=== PATIENT | male | born 1955 | race American Indian/Alaskan Native ===

== ENCOUNTER 2021-10-19 00:27 | Emergency (ER) | payer MEDICARE ==
[2021-10-19 00:45] VITALS: BP 135/85
--- NOTE | 2021-10-19 01:07 | Emergency Department Report ---
ED General Adult HPI - General Chief complaint: Extremity Injury, Lower Stated complaint: BILATERAL LEG PAIN Time Seen by Provider: 10/19/21 00:55 Source: patient Mode of arrival: Ambulatory Limitations: No Limitations - History of Present Illness Initial comments: Patient presents secondary to feet swelling and pain. Patient states he has been walking and has been walking too much. He states that his feet has been swollen. His ankles are swollen. They both hurt. He states the pain is 9-10 out of 10. He was talking to his father and was told that he needed to rest and prop his feet up. He decided that the hospital was the best place to go for that. He believes that we should admit him to the hospital for 2 or 3 days so he can rest. He does also report having a toenail fungus. When he was informed that swelling in the feet of ankles would not likely result in admission, he asked if an irregular heartbeat or arrhythmia would. He states that he has an arrhythmia. He has not been on medication in years. He does not know what kind of arrhythmia. He believes it was ventricular. He did not have to be on blood thinners for that arrhythmia because he states "I was already on lithium and that was thinning my blood." - Related Data Previous Rx's Medication Instructions Recorded Last Taken Type Furosemide [Lasix] 20 mg PO QDAY #5 tablet 10/19/21 Unknown Rx Ibuprofen [Motrin] 600 mg PO Q8H PRN #20 tablet 10/19/21 Unknown Rx Potassium Chloride [KCl 20 meq 20 meq PO QDAY #5 bottle 10/19/21 Unknown Rx ORAL LIQ] Allergies Allergy/AdvReac Type Severity Reaction Status Date / Time No Known Allergies Allergy Verified 10/19/21 00:43 ED Review of Systems ROS: Stated complaint: BILATERAL LEG PAIN Other details as noted in HPI Comment: All other systems reviewed and negative Constitutional: denies: fever Eyes: denies: eye pain ENT: denies: throat pain Respiratory: denies: cough Cardiovascular: denies: chest pain Endocrine: denies: unexplained weight loss Gastrointestinal: denies: abdominal pain Genitourinary: denies: dysuria Musculoskeletal: denies: back pain Skin: denies: rash Neurological: denies: headache Hematological/Lymphatic: denies: easy bruising ED Past Medical Hx - Past Medical History Previous Medical History?: No Additional medical history: Arrhythmia, thyroid disease - Family History Family history: no significant - Medications Home Medications: Home Medications Medication Instructions Recorded Confirmed Last Taken Type Furosemide [Lasix] 20 mg PO QDAY #5 tablet 10/19/21 Unknown Rx Ibuprofen [Motrin] 600 mg PO Q8H PRN #20 tablet 10/19/21 Unknown Rx Potassium Chloride [KCl 20 meq 20 meq PO QDAY #5 bottle 10/19/21 Unknown Rx ORAL LIQ] ED Physical Exam - General Limitations: No Limitations, Other (Pulse ox noted and normal) General appearance: alert, in no apparent distress, other (Disheveled) - Head Head exam: Present: atraumatic, normocephalic, normal inspection - Eye Eye exam: Present: normal appearance, EOMI. Absent: scleral icterus - ENT ENT exam: Present: normal exam, normal external ear exam - Neck Neck exam: Present: normal inspection. Absent: meningismus - Respiratory Respiratory exam: Present: normal lung sounds bilaterally. Absent: respiratory distress - Cardiovascular Cardiovascular Exam: Present: regular rate, normal rhythm - GI/Abdominal GI/Abdominal exam: Present: soft. Absent: tenderness - Extremities Exam Extremities exam: Present: normal capillary refill, pedal edema (3+ bilateral), other (There is no warmth or erythema. Pulses are equal and symmetric.) - Back Exam Back exam: Absent: CVA tenderness (R), CVA tenderness (L) - Neurological Exam Neurological exam: Present: alert, oriented X3, CN II-XII intact, normal gait, reflexes normal. Absent: motor sensory deficit - Psychiatric Psychiatric exam: Present: normal affect, normal mood - Skin Skin exam: Present: warm, dry ED Course Vital Signs 10/19/21 00:44 Temperature 98.0 F Pulse Rate 80 Respiratory 16 Rate Blood Pressure 135/85 [Left] O2 Sat by Pulse 98 Oximetry - Reevaluation(s) Reevaluation #1: 10/19/21 01:04 EKG was ordered. Old records reviewed. Reevaluation #2: 10/19/21 01:40 EKG is pending. ED Medical Decision Making - Medical Decision Making Patient presents complaining of pedal swelling and pain. He does have pedal edema which is nonpitting. He has no symptoms that would suggest DVT. This is bilateral. He has no warmth or erythema suggestive of any kind of infectious process. He does not have chest pain. He is not hypoxic. Is not tachycardic. I do not believe this represents any type of thromboembolic disease. He reported having a dysrhythmia but has no evidence of arrhythmia here. He does not require admission to the hospital. He was treated symptomatically and referred for outpatient follow-up Critical Care Time: No Critical care attestation.: If time is entered above; I have spent that time in minutes in the direct care of this critically ill patient, excluding procedure time. ED Disposition Clinical Impression: Dependent edema, Lower extremity pain, bilateral Disposition: HOME / SELF CARE / HOMELESS Is pt being admited?: No Condition: Stable Instructions: Pain Without a Known Cause, Edema, [id number] Additional Instructions: Elevate the feet. Return for problems. Follow-up with a regular doctor. If you do not have a regular doctor, follow-up with the referral physician. Prescriptions: Potassium Chloride [KCl 20 meq ORAL LIQ] 20 meq PO QDAY #5 bottle Furosemide [Lasix] 20 mg PO QDAY #5 tablet Ibuprofen [Motrin] 600 mg PO Q8H PRN #20 tablet PRN Reason: Pain Referrals: PRIMARY MD LORETTA [Primary Care Provider] - 3-5 Days JUAN JOSE GOMEZ MD [Staff Physician] - 3-5 Days
[2021-10-19] MEDS ORDERED: IBUPROFEN 800 MG TAB PO ONE (02:29)
--- NOTE | 2021-10-19 09:59 | Electrocardiograph Report ---
[facility] Test Date: 2021-10-19 Test Time: 02:23:18 Pat Name: MARITZA BUI Department: Room: Gender: M [employer]: INGRID : [id number] Requested By: JOVANNY OHARA Order Number: [id number] Reading MD: Nima Watts Measurements Intervals [place] Rate: 66 P: 85 MI: 136 QRS: 85 QRSD: 87 T: 83 QT: 403 QTc: 424 Interpretive Statements Sinus rhythm LAE, consider biatrial enlargement No previous ECG available for comparison Electronically Signed On 10-19-2021 9:59:24 EST by Nima Watts
== END 2021-10-19 02:45 | disposition home or self-care (01) ==
LOC: ED 00:27
DX: R60.9 Edema, unspecified (principal); M79.606 Pain in leg, unspecified
CPT/HCPCS: 93005; 99283